=== PATIENT | male | born 1960 | race Caucasian/White ===

== ENCOUNTER 2019-09-21 23:31 | Emergency (ER) | payer OTHER, SELFPAY ==
[2019-09-22] MEDS ORDERED: Ketorolac Tromethamine 60 MG/2 ML VIAL ONE (00:07)
--- NOTE | 2019-09-22 07:39 | RAD ---
EXAM: 3 views of the left shoulder HISTORY: Shoulder pain after fall COMPARISON: None FINDINGS: There is a comminuted fracture of the proximal humerus involving the head and neck. No disl ocation is seen. No degenerative changes are present. No soft tissue swelling is seen. The visualized thorax is unremarkable. IMPRESSION: Comminuted proximal left humerus fracture
--- NOTE | 2019-09-22 07:45 | RAD ---
PA CHEST RADIOGRAPH WITH 2 VIEWS LEFT RIBS: DATE: 09/22/2019. PROVIDED CLINICAL HISTORY: Pain status post injury. FINDINGS: Proximal humeral fracture is demonstrated, described in detail on concurrently performed radiographs. There is no evidence for a displaced left-sided rib fracture, pleural fluid, or pneumothorax. The lungs appear clear. Cardiac and mediastinal silhouette is within normal limits. IMPRESSION: 1. Left proximal humeral fracture. 2. No evidence for an acute cardiopulmonary process. POS: OFF
== END 2019-09-22 00:41 | disposition home or self-care (01) ==
LOC: ERS 23:31
DX: S42.212A Unspecified displaced fracture of surgical neck of left humerus, initial encounter for closed fracture (principal); S42.202A Unspecified fracture of upper end of left humerus, initial encounter for closed fracture; E78.5 Hyperlipidemia, unspecified; I10 Essential (primary) hypertension; Z79.899 Other long term (current) drug therapy; W18.30XA Fall on same level, unspecified, initial encounter
CPT/HCPCS: 96372; J1885

== ENCOUNTER 2021-01-14 10:54 | Day surgery (SDC) | payer OTHER | END 2021-01-14 13:40 | disposition home or self-care (01) | LOC: SDC/OP 10:54 → EDSTATUS 12:00 → SDC/OP 13:40 | DX: M47.816 Spondylosis without myelopathy or radiculopathy, lumbar region (principal); M48.061 Spinal stenosis, lumbar region without neurogenic claudication; I10 Essential (primary) hypertension; E11.9 Type 2 diabetes mellitus without complications; K21.9 Gastro-esophageal reflux disease without esophagitis; E66.9 Obesity, unspecified; Z68.43 Body mass index [BMI] 50.0-59.9, adult; Z88.0 Allergy status to penicillin; Z88.5 Allergy status to narcotic agent; Z91.048 Other nonmedicinal substance allergy status | CPT/HCPCS: 72148 ==

== ENCOUNTER 2023-06-29 10:07 | Day surgery (SDC) | payer OTHER ==
[2023-06-26 13:50] VITALS: BMI 33.3
[2023-06-29 11:26] LABS: #Eosinphils 0.3 thou/uL (0.0-0.7); #Monocytes 0.5 thou/uL (0.11-0.59); %Basophils 0.4 % (0.0-1.0); %Eosinophils 3.2 % (0.0-10.0); %Lymphocytes 24.9 % (21.0-51.0); %Monocytes 6.9 % (0.0-10.0); %Neutrophils 64.1 % (42.0-75.0); Hematocrit 44.8 % (42.0-52.0); Mean Corpuscular HGB CONC 33.5 g/dL (32.0-36.0); Mean Corpuscular Hemoglobin 30.5 pg (27.0-31.0); Mean Corpuscular Volume 91.2 fl (78.0-98.0); Mean Platelet Volume 10.1 fL (7.4-10.4); Platelet Count 202 10x3/uL (130-400); Red Blood Cell (RBC) Count 4.91 mill/uL (4.70-6.10); White Blood Cell (WBC) Count 7.9 10x3/uL (4.8-10.8)
[2023-06-29 11:47] LABS: Anion Gap 15 mmol/L (10-20); BUN (Urea Nitrogen) 12 mg/dL (8.4-25.7); Calc. Creatinine Clearance 179 mL/min (70-130); Calcium 9.1 mg/dL (7.8-10.44); Carbon Dioxide 24 mmol/L (23-31); Chloride 104 mmol/L (98-107); Estimated GFR 106; Glucose 165 mg/dL (80-115); Sodium 139 mmol/L (136-145)
[2023-06-29] MEDS ORDERED: PROPOFOL 200 MG/20 ML VIAL ONE (12:15)
[2023-06-29] MEDS ORDERED: fentaNYL 50 mcg/mL 1 mL Vial ONE (12:21)
== END 2023-06-29 14:00 | disposition home or self-care (01) ==
LOC: SDC/OP 10:07
DX: M54.50 Low back pain, unspecified (principal); Z88.0 Allergy status to penicillin; Z88.5 Allergy status to narcotic agent; Z91.048 Other nonmedicinal substance allergy status
CPT/HCPCS: 72148; 80048; 85025; 93005; 93010; J2704; J3010